=== PATIENT | male | born 2000 ===

== ENCOUNTER 2018-02-24 18:56 | Emergency (ER) | payer OTHER, SELFPAY ==
[2018-02-24 19:02] VITALS: BP 119/70; PULSE 92; RESP 16; TEMP 36.7; O2SAT 98
[2018-02-24] MEDS: Cyclobenzaprine 10 MG TAB 20 MG PO (20:10)
[2018-02-24] MEDS: Lidocaine 5% Patch 1 PATCH TP (20:13)
[2018-02-24] MEDS: Ibuprofen 600 MG TAB PO (20:13)
--- NOTE | 2018-02-24 20:17 | ED.GENADUL_ITS ---
Disposition Clinical Impression: Lumbar back sprain, Sciatica of left side Disposition: HOME Condition: Stable Instructions: Sciatica (ED), Low Back Strain (ED), Lower Back Exercises (ED) Additional Instructions: Return immediately to the emergency department if you have any fever associate with your back pain, saddle anesthesia, changes in bowel or bladder function. Otherwise it is recommended that you minimize heavy lifting bending or twisting activities for the next week and slowly advance activity as tolerated by pain. If not improving over the next 2 weeks please follow-up with your primary care provider for reassessment. Prescriptions: Cyclobenzaprine [Flexeril] 10 mg PO Q8H PRN #15 tab PRN Reason: Muscle Spasm Ibuprofen 600 mg PO Q6H PRN #20 tablet PRN Reason: Pain Referrals: Primary Care Provider [Outside] - 2 weeks (If not improving follow-up with your primary care provider for reassessment) Forms: Work Release Medical Decision Making - Medical Decision Making Patient presenting to the emergency department for back pain that occurred this morning after lifting heavy objects. Physical exam shows mild spinal tenderness to the lumbar spine with significant tenderness to palpation of paraspinal tissue of the left lumbar spine. Patient does state some radiation down his left leg but no saddle anesthesia, no deficiency of motor or sensory, normal pulses, no trauma stated by patient. Physical exam is concerning for lumbar strain and some sciatic nerve irritation but no findings or history concerning for cauda equina or epidural abscess is noted. Patient was given lidocaine patch, ibuprofen, and Flexeril and prescriptions for ibuprofen and Flexeril at home. Patient was encouraged to take the next couple days off work to allow his back to rest and then advance activity as tolerated by pain. Patient states due to his financial situation he is unable to take time off work which I informed him this may delay or prolong his healing. Patient was encouraged to follow-up with his primary care provider for reassessment in the next couple weeks if not improving. Patient also encouraged to return for any signs of emergent back pain which were thoroughly discussed with patient. After discussion of diagnosis and plan of care with patient patient agreed and stated no further needs, questions, or concerns at this time. History of Present Illness - General Chief complaint: Nk/Back Pain Stated complaint: BACK INJ Time Seen by Provider: 02/24/18 20:04 Source: patient, RN notes reviewed Mode of arrival: ambulatory Limitations: no limitations - History of Present Illness Initial comments: Reports earlier this morning he went to lift some buckets of heavy materials and felt a pop in his back and then started having increasing back pain with some radiation down his left leg. Patient denies any injury or trauma, fall, fever chills, changes in bowel or bladder bladder function saddle anesthesia. Onset/Timin -: hour(s) Location: back Radiation: extremity (left) Severity scale (1-10): 6 Quality: aching, sharp Consistency: constant Improves with: none Worsens with: movement Associated Symptoms: denies other symptoms Treatments Prior to Arrival: NSAID - Related Data Cyclobenzaprine [Flexeril] 10 mg PO Q8H PRN #15 tab 02/24/18 Ibuprofen 600 mg PO Q6H PRN #20 tablet 02/24/18 Allergies Allergy/AdvReac Type Severity Reaction Status Date / Time No Known Allergies Allergy Unverified 02/24/18 19:05 Review of Systems Constitutional: no symptoms reported. denies: chills, fever Respiratory: no symptoms reported Cardiovascular: denies: chest pain, syncope Gastrointestinal: denies: abdominal pain, diarrhea, constipation Genitourinary: denies: dysuria Musculoskeletal: as per HPI, back pain Skin: denies: rash Neurological: denies: weakness Past Medical History - Past Medical History Scoliosis as child Surgical history: no surgical history - Social History Smoking status: current everyday smoker Alcohol use: none Drug use: none Living Situation: other (Traveling for work) General Exam - General Limitations: no limitations General appearance: alert, in no apparent distress - Head Head exam: Present: atraumatic, normocephalic - Eye Eye exam: Present: normal apperance - Respiratory Respiratory exam: Absent: respiratory distress - Cardiovascular Cardiovascular Exam: Present: regular rate, normal rhythm - Extremities Exam Extremities exam: Present: full ROM. Absent: joint swelling - Back Exam Back exam: Present: muscle spasm (Left lumbar), paraspinal tenderness ( Significant left lumbar paraspinal tenderness), vertebral tenderness (Mild lower lumbar) - Expanded Back Exam No standard instances Back exam: Absent: saddle anesthesia Back exam: Sciatic Notch Tenderness: (left), Positive Straight Leg Raise: ( left), Negative Straight Leg Raising: (right) - Neurological Exam Neurological exam: Present: alert, oriented X3, normal gait, reflexes normal ( Patellar and Achilles equal bilateral 2+). Absent: altered, motor sensory deficit - Skin Skin exam: Present: warm, dry, intact, normal color. Absent: rash, cyanosis, diaphoretic, pallor, mottled Course Vital Signs - 24 hr 02/24/18 19:02 Temperature 36.7 C Pulse 92 H Respiratory 16 Rate Blood Pressure 119/70 Pulse Oximetry 98
== END 2018-02-24 20:27 | disposition home or self-care (01) ==
PROVIDERS: Emergency Provider Student in an Organized Health Care Education/Training Program
DX: S33.5XXA Sprain of ligaments of lumbar spine, initial encounter (principal); M54.32 Sciatica, left side; X50.0XXA Overexertion from strenuous movement or load, initial encounter
CPT/HCPCS: 99283